=== PATIENT | male | born 1965 | race Caucasian/White ===

== ENCOUNTER → 2017-10-05 | Outpatient (CLI) | payer OTHER ==
--- NOTE | 2017-10-05 16:33 | RAD ---
Exam: Right shoulder three views History: Right shoulder pain Comparison: None Findings: Three views of right shoulder radiographically normal with no acute bony abnormality or sig nificant degenerative change seen. IMPRESSION: Negative views of right shoulder. Reported By:
== END ==
LOC: RAD 12:23
PROVIDERS: ATTEND Physician Assistant
DX: M25.511 Pain in right shoulder (principal)
CPT/HCPCS: 73030

== ENCOUNTER → 2017-12-07 | Outpatient (CLI) | payer OTHER | LOC: RT 14:49 | PROVIDERS: ATTEND Orthopaedic Surgery Sports Medicine | DX: Z01.810 Encounter for preprocedural cardiovascular examination (principal); E11.9 Type 2 diabetes mellitus without complications; J45.909 Unspecified asthma, uncomplicated; M12.9 Arthropathy, unspecified | CPT/HCPCS: 93005; 93010 ==